=== PATIENT | female | born 1985 | race Two or more races ===

== ENCOUNTER 2018-11-17 10:35 | Inpatient (IN) | payer MEDICAID ==
[~2018-11-17] VITALS: Ht 177.8 cm; Wt 114.0 kg
[2018-11-17 12:41] LABS: BASOPHILS % 0.3 % (0.0-2.0); EOSINOPHILS % 0.6 % (0.0-5.0); HEMOGLOBIN. 13.3 g/dL (12.0-16.0); LYMPHOCYTES % 14.1 % (20.0-50.0); MEAN CORPUSCULAR HEMOGLOBIN 33.1 pg (28.0-32.0); MEAN PLATELET VOLUME 8.3 fl (7.4-10.4); MONOCYTES % 4.3 % (2.0-8.0); NEUTROPHILS % 80.7 % (40.0-76.0); PLATELET 214 x1000/uL (130-400); RED BLOOD CELL COUNT 4.02 mill/uL (4.2-5.4); RED CELL DISTRIBUTION WIDTH 12.8 % (11.6-14.6)
[2018-11-17 12:48] LABS: CHLORIDE 105 mEq/L (98-107)
[2018-11-17 12:54] LABS: ETHANOL BLOOD < 10 mg/dL
[2018-11-17] MEDS ORDERED: LORAZEPAM 2MG/ML CPJ IV ONE (13:00)
[2018-11-17] MEDS ORDERED: LEVETIRACETAM 1000MG/100ML 100 ML IV ONE (13:00)
[2018-11-17 13:16] LABS: HCG SCREEN NEGATIVE
[2018-11-17] MEDS ORDERED: ACETAMINOPHEN 325MG TABLET PO PRN (15:45)
[2018-11-17] MEDS ORDERED: ONDANSETRON HCL 4MG/2ML INJ IV PRN (15:45)
[2018-11-17] MEDS ORDERED: LORAZEPAM 2MG/ML CPJ IV PRN (15:45)
[2018-11-17 16:47] LABS: CLARITY URINE CLEAR (CLEAR); COLOR URINE YELLOW (YELLOW); KETONES URINE TRACE (NEGATIVE); LEUKOCYTE ESTERASE URINE NEGATIVE (NEGATIVE); NITRITE URINE NEGATIVE (NEGATIVE); OCCULT BLOOD URINE TRACE (NEGATIVE); PH URINE 6.5 (4.5-8.0); PROTEIN URINE 1+ (NEGATIVE); SPECIFIC GRAVITY URINE 1.024 (1.005-1.030); UROBILINOGEN URINE 0.2 E.U./dL (0.2-1.0)
[2018-11-17 16:48] VITALS: BP 110/76
[2018-11-17 17:00] LABS: *AMPHETAMINES SCREEN URINE NEGATIVE (NEGATIVE); *BARBITURATES SCREEN URINE NEGATIVE (NEGATIVE); *COCAINE SCREEN URINE NEGATIVE (NEGATIVE)
[2018-11-17 17:01] LABS: METHADONE URINE SCREEN NEGATIVE (NEGATIVE); OPIATES URINE SCREEN NEGATIVE (NEGATIVE); PHENCYCLIDINE URINE SCREEN NEGATIVE (NEGATIVE)
[2018-11-17 17:04] LABS: *BENZODIAZEPINES SCREEN URINE NEGATIVE (NEGATIVE)
[2018-11-17 17:08] LABS: CANNABINOID URINE SCREEN NEGATIVE (NEGATIVE)
[2018-11-17] MEDS ORDERED: LEVETIRACETAM 500MG/5ML CUP PO SCH (21:00)
== END 2018-11-17 19:00 | disposition left against medical advice (07) | DRG 53 ==
LOC: ER 10:51 → EDBEDREQTM 14:01 → EDBEDREQ 14:01 → 5WST 14:02 → CANRESERV 15:22 → ENRESERV 15:22
PROVIDERS: ADMIT Internal Medicine; ATTEND Internal Medicine
DX: R56.9 Unspecified convulsions (principal); Z53.21 Procedure and treatment not carried out due to patient leaving prior to being seen by health care provider
CPT/HCPCS: 36415; 80165; 80305; 84703; 96365; 96375; 99291; G0482; J1953; J2060

== ENCOUNTER 2020-02-21 12:55 | Emergency (ER) | payer SELFPAY ==
[~2020-02-21] VITALS: Ht 170.2 cm; Wt 100.0 kg
[2020-02-21 14:08] LABS: BASOPHILS % 0.2 % (0.0-2.0); EOSINOPHILS % 0.3 % (0.0-5.0); HEMATOCRIT. 41.9 % (36.0-48.0); HEMOGLOBIN. 14.2 g/dL (12.0-16.0); LYMPHOCYTES % 13.1 % (20.0-50.0); MEAN CORPUSCULAR HEMOGLOBIN 32.5 pg (28.0-32.0); MEAN PLATELET VOLUME 8.5 fl (7.4-10.4); MONOCYTES % 3.9 % (2.0-8.0); NEUTROPHILS % 82.5 % (40.0-76.0); PLATELET 219 x1000/uL (130-400); RED BLOOD CELL COUNT 4.37 mill/uL (4.2-5.4); RED CELL DISTRIBUTION WIDTH 12.7 % (11.6-14.6)
[2020-02-21 14:09] LABS: CHLORIDE 106 mEq/L (98-107)
[2020-02-21 14:14] LABS: ETHANOL BLOOD < 10 mg/dL
[2020-02-21 14:47] LABS: CLARITY URINE CLEAR (CLEAR); COLOR URINE YELLOW (YELLOW); KETONES URINE TRACE (NEGATIVE); LEUKOCYTE ESTERASE URINE NEGATIVE (NEGATIVE); NITRITE URINE NEGATIVE (NEGATIVE); OCCULT BLOOD URINE NEGATIVE (NEGATIVE); PH URINE 6.5 (4.5-8.0); PROTEIN URINE 1+ (NEGATIVE); SPECIFIC GRAVITY URINE 1.027 (1.005-1.030)
[2020-02-21] MEDS ORDERED: VALPROIC ACID 250MG CAPSULE PO NR (15:00)
[2020-02-21 15:02] LABS: *BARBITURATES SCREEN URINE NEGATIVE (NEGATIVE); METHADONE URINE SCREEN NEGATIVE (NEGATIVE); OPIATES URINE SCREEN NEGATIVE (NEGATIVE)
[2020-02-21 15:04] LABS: *AMPHETAMINES SCREEN URINE NEGATIVE (NEGATIVE); *COCAINE SCREEN URINE NEGATIVE (NEGATIVE); CANNABINOID URINE SCREEN NEGATIVE (NEGATIVE); PHENCYCLIDINE URINE SCREEN NEGATIVE (NEGATIVE)
[2020-02-21 15:11] LABS: *BENZODIAZEPINES SCREEN URINE PRESUMTIVE POSITIVE (NEGATIVE)
[2020-02-21] MEDS ORDERED: ACETAMINOPHEN 325MG TABLET PO ONE (15:15)
[2020-02-21] MEDS ORDERED: ONDANSETRON HCL 4MG/2ML INJ IV ONE (15:30)
[2020-02-21 16:11] VITALS: BP 138/90
== END 2020-02-21 16:31 | disposition home or self-care (01) ==
LOC: ER 12:55
DX: G40.909 Epilepsy, unspecified, not intractable, without status epilepticus (principal); R10.13 Epigastric pain; R11.10 Vomiting, unspecified; Z59.0 Homelessness
CPT/HCPCS: 36415; 80053; 80165; 80305; 80320; 81003; 81025; 85025; 96374; 99283; J2405; G0480

== ENCOUNTER 2023-07-15 06:55 | Emergency (ER) | payer MEDICAID ==
[~2023-07-15] VITALS: Ht 170.2 cm; Wt 149.0 kg
[2023-07-15 07:26] VITALS: O2SAT 100
[2023-07-15 09:45] VITALS: BP 123/74; PULSE 62; RESP 18; TEMP 98.2
== END 2023-07-15 09:46 | disposition home or self-care (01) ==
LOC: ER 07:10
DX: B34.9 Viral infection, unspecified (principal); Z20.822 Contact with and (suspected) exposure to COVID-19; Z86.59 Personal history of other mental and behavioral disorders
CPT/HCPCS: 99283; 87426; C9803